=== PATIENT | female | born 1955 | race Caucasian/White ===

== ENCOUNTER → 2016-04-06 | Day surgery (SDC) | payer BC ==
[~2016-04-06] MED LIST: ACLI1AER2 IN; ALBU8I INH; ATEN-100 PO; CYCL-36 PO; LACTATED RINGER'S 1000 ML INJ 1,000 ML ONE; LEVO.05 PO; PROPOFOL 200 MG/20 ML AMP IV ONE; PROT40TA PO; PYRI100T4 PO; SYMB80AE INH; TAB-TAB PO; VAGI10TA VA; VITA10002 PO
== END | disposition home or self-care (01) ==
LOC: ESDC 07:30
PROVIDERS: ATTEND Internal Medicine Gastroenterology
DX: R13.10 Dysphagia, unspecified (principal); K29.70 Gastritis, unspecified, without bleeding; K20.9 Esophagitis, unspecified; K22.2 Esophageal obstruction
CPT/HCPCS: 00740; 43239; 43248; 88305; J3010; J7120

== ENCOUNTER → 2016-09-30 | Day surgery (SDC) | payer BC, OTHER | END | disposition home or self-care (01) | LOC: ESDC 08:12 | PROVIDERS: ATTEND Internal Medicine Gastroenterology | DX: R13.10 Dysphagia, unspecified (principal); K22.2 Esophageal obstruction; K29.70 Gastritis, unspecified, without bleeding; K20.9 Esophagitis, unspecified | CPT/HCPCS: 00740; 43239; 43248; 88305; J7120 ==

== ENCOUNTER → 2017-02-10 | Outpatient (CLI) | payer OTHER ==
[~2017-02-10] MED LIST changes: -LACTATED RINGER'S 1000 ML INJ 1,000 ML ONE; -PROPOFOL 200 MG/20 ML AMP IV ONE
--- NOTE | 2017-02-10 12:40 | RADRPT ---
EXAM DATE/TIME: 02/10/2017 10:54 [place] COMPARISON: BA SWALLOW W/SPEECH PATHOLOGY, July 11, 2015, 0:00. INDICATIONS : Dysphagia. FLUORO TIME: 4.5 minutes IMAGE COUNT: 1 CONTRAST: Dose as prescribed by speech pathologist. 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 SURGICAL HISTORY : Several esophageal surgeries. ENCOUNTER: Subsequent ACUITY: >1 year PAIN SCORE: 0/10 LOCATION: Esophagus. FINDINGS: A modified barium swallow was performed with speech pathology. Patient was given a variety of liquids to swallow. Significant pooling and residual is identified in the vallecula and piriform sinuses. There is deform ity of the upper esophageal sphincter resulting in slight delay in passage of contrast into the esoph dom. There is no evidence of vestibular penetration or aspiration. For a full detailed report, see report by the speech pathologist. 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 Significant pooling and residual in the vallecula and piriform sinuses. No evidence of aspiration. Carotid stent is identified. Srikanth Landry MD on February 10, 2017 at 12:36 Board Certified Radiologist. This report was verified electronically.
== END ==
LOC: HRAD 10:13
PROVIDERS: ATTEND Internal Medicine Gastroenterology
DX: R13.10 Dysphagia, unspecified (principal); K20.9 Esophagitis, unspecified
CPT/HCPCS: 74230; 92611; G8996; G8997; G8998

== ENCOUNTER 2017-03-08 12:47 | Emergency (ER) | payer OTHER ==
[2017-03-08] MEDS ORDERED: SODIUM CHLORIDE 0.9% FLUSH 10 ML FLUSH IVF (14:00)
[2017-03-08 14:39] LABS: AUTOMATED NEUTROPHIL # 11.8 TH/MM3 (1.8-7.7); BASOPHIL # 0.3 TH/MM3 (0-0.2); BASOPHIL % 2.1 % (0.0-2.0); EOSINOPHIL # 0.1 TH/MM3 (0-0.4); EOSINOPHIL % 0.4 % (0.0-4.0); HEMATOCRIT 36.4 % (35.0-46.0); HEMOGLOBIN 11.7 GM/DL (11.6-15.3); LYMPH % 8.4 % (9.0-44.0); LYMPHOCYTE # 1.2 TH/MM3 (1.0-4.8); MEAN CELL VOLUME 85.4 FL (80.0-100.0); MEAN CORPUSCULAR HEMOGLOBIN 27.5 PG (27.0-34.0); MEAN CORPUSCULAR HGB CONC 32.2 % (32.0-36.0); MEAN PLATELET VOLUME 8.6 FL (7.0-11.0); MONO % 3.7 % (0.0-8.0); MONOCYTE # 0.5 TH/MM3 (0-0.9); NEUT % 85.4 % (16.0-70.0); PLATELET COUNT 357 TH/MM3 (150-450); RED BLOOD COUNT 4.26 MIL/MM3 (4.00-5.30); RED CELL DISTRIBUTION WIDTH 15.4 % (11.6-17.2); WHITE BLOOD COUNT 13.9 TH/MM3 (4.0-11.0)
[2017-03-08 14:46] LABS: CHLORIDE 101 MEQ/L (98-107); POTASSIUM 4.2 MEQ/L (3.5-5.1); SODIUM (NA) 136 MEQ/L (136-145)
[2017-03-08 14:49] LABS: ANION GAP 7 MEQ/L (5-15); BICARBONATE 28.2 MEQ/L (21.0-32.0); CALCIUM 8.9 MG/DL (8.5-10.1); GLUCOSE,RANDOM 86 MG/DL (74-106)
[2017-03-08 14:50] LABS: BLOOD UREA NITROGEN 15 MG/DL (7-18)
[2017-03-08 14:53] LABS: CREATININE 0.74 MG/DL (0.50-1.00); GLOMERULAR FILTRATION RATE 79 ML/MIN (>89)
[2017-03-08] MEDS: RESP: ALBUTEROL 2.5 MG/3 ML NEB (SCH) INH ×2 (14:54)
[2017-03-08 14:55] LABS: HEMO FLAGS AUTO DIFF
[2017-03-08] MEDS: methylPREDNISolone SOD SUCC 40 MG/1 ML VIAL IV PUSH (15:03)
[2017-03-08 15:23] LABS: LACTIC ACID SEPSIS PROTOCOL 0.9 mmol/L (0.4-2.0)
[2017-03-08 15:25] LABS: BANDS 7 % (0-6); EOSINOPHILS 1 % (0-4); LYMPHOCYTES 7 % (9-44); MONOCYTES 4 % (0-8); NEUTROPHIL # MANUAL DIFF 12.2 TH/MM3 (1.8-7.7); POLYS (SEG NEUTROPHILS) 81 % (16-70); WBC DIFF SAMPLE 100
[2017-03-08 15:26] LABS: PLATELET ESTIMATE SMEAR NORMAL (NORMAL); PLATELET MORPHOLOGY NORMAL (NORMAL); SCAN/DIFF FINAL DIFF MANUAL
[2017-03-08] MEDS: DEXAMETHASONE SOD PHOS 4 MG/ML VIAL IV PUSH (16:00)
== END 2017-03-08 16:27 | disposition home or self-care (01) ==
LOC: PHEFT 12:47
DX: J40 Bronchitis, not specified as acute or chronic (principal); J44.9 Chronic obstructive pulmonary disease, unspecified; I10 Essential (primary) hypertension; E78.00 Pure hypercholesterolemia, unspecified; K21.9 Gastro-esophageal reflux disease without esophagitis; Z85.819 Personal history of malignant neoplasm of unspecified site of lip, oral cavity, and pharynx; Z86.73 Personal history of transient ischemic attack (TIA), and cerebral infarction without residual deficits; Z79.899 Other long term (current) drug therapy; Z79.82 Long term (current) use of aspirin
CPT/HCPCS: 71045; 80048; 83605; 85007; 85027; 87040; 87804; 87804-59; 94664; 96374; 96375; 99284-25